=== PATIENT | female | born 1985 | race Caucasian/White ===

== ENCOUNTER 2024-04-07 20:08 | Inpatient (IN) | payer OTHER, SELFPAY ==
[2024-04-07] MEDS ORDERED: Ketorolac Tromethamine 30 MG (1 mL) VIAL ONE (20:22)
[2024-04-07] MEDS ORDERED: fentaNYL 50 mcg/mL 1 mL Vial ONE (20:22)
[2024-04-07 20:45] LABS: #Basophils Less than 0.03 10x3/uL (0.0-0.2); #Eosinophils Less than 0.03 10x3/uL (0.0-0.7); %Basophils 0.1 % (0.0-1.0); %Eosinophils 0.1 % (0.0-10.0); %Lymphocytes 2.2 % (21.0-51.0); %Monocytes 1.8 % (0.0-10.0); %Neutrophils 95.3 % (42.0-75.0); Hematocrit 32.5 % (36.0-47.0); Hemoglobin 11.1 g/dL (12.0-16.0); Mean Corpuscular HGB CONC 34.2 g/dL (32.0-36.0); Mean Corpuscular Hemoglobin 30.5 pg (27.0-31.0); Mean Corpuscular Volume 89.3 fL (78.0-98.0); Mean Platelet Volume 11.4 fL (7.4-10.4); Platelet Count 246 10x3/uL (130-400); RBC Distribution Width 13.1 % (11.5-14.5); Red Blood Cell (RBC) Count 3.64 mill/uL (4.20-5.40)
[2024-04-07 20:58] LABS: BHCG - Serum Negative (NEGATIVE); Pregs Control Background? CLEAR/WHITE (CLR/WHITE); Pregs Control Bar Appear? YES (CONTROL BAR)
[2024-04-07 21:06] LABS: ALT (SGPT) 11 U/L (8-55); AST (SGOT) 20 U/L (5-34); Albumin 3.3 g/dL (3.5-5.0); Alkaline Phosphatase 74 U/L (40-110); Anion Gap 14 mmol/L (10-20); BUN (Urea Nitrogen) 9 mg/dL (7.0-18.7); Calc. Creatinine Clearance 0 mL/min (70-130); Calcium 8.5 mg/dL (7.8-10.44); Carbon Dioxide 18 mmol/L (22-29); Chloride 108 mmol/L (98-107); Estimated GFR 84; Globulin 2.7 g/dL (2.4-3.5); Glucose 94 mg/dL (70-105); Potassium 3.6 mmol/L (3.5-5.1); Sodium 136 mmol/L (136-145)
[2024-04-07] MEDS ORDERED: HYDROmorphone 0.5 MG/0.5 ML SYRINGE ONE (21:23)
[2024-04-07] MEDS ORDERED: cefTRIAXone (ROCEPHIN) 1 GM VIAL ONE (23:09)
[2024-04-07] MEDS ORDERED: Sodium Chloride 0.9% 100 ML ONE (23:09)
[2024-04-08 00:24] LABS: Bilirubin Negative (Negative); Blood, Urine 1+ (Negative); CAUTI Indications for Culture Pelvic or flank pain; Clarity Extra Turbid (Clear); Glucose, Urine (Dipstick) Normal (Negative); Ketone, Urine Trace mg/dL (Negative); Leukocyte 500 Leu/uL (Negative); Nitrite 2+ (Negative); Protein, Urine (Dipstick) 70 mg/dL (Neg-Trace); Squamous Epithelial Greater than 50 HPF (0-3); Transitional Epithelial 0-3 HPF (None Seen); Urobilinogen Normal mg/dL (Less than 2); WBC/HPF Greater than 50 HPF (0-3); pH, Urine 6.5 (5.0-9.0)
[2024-04-08 00:25] LABS: Bacteria/HPF 1+ HPF (None Seen)
[2024-04-08 00:26] LABS: Urine Culture Reflex Yes Yes
[2024-04-08 00:37] LABS: Specific Gravity, Urine Greater than 1.060 (1.002-1.036)
[2024-04-08] MEDS ORDERED: Ketorolac Tromethamine 30 MG (1 mL) VIAL ONE (01:09)
[2024-04-08] MEDS ORDERED: Acetaminophen 650 MG Suppository PR PRN (01:33)
[2024-04-08 02:17] VITALS: BMI 21.1
[2024-04-08] MEDS ORDERED: Morphine 4 MG/ML VIAL ONE (02:21)
[2024-04-08] MEDS ORDERED: Sodium Chloride 0.9% 100 ML ONE (02:21)
[2024-04-08] MEDS ORDERED: cefTRIAXone (ROCEPHIN) 1 GM VIAL ONE (02:21)
[2024-04-08] MEDS: Morphine 4 MG/ML VIAL SLOW IVP SCH (02:37)
[2024-04-08] MEDS: Sodium Chloride 0.9% 1,000 ML IV SCH (02:38)
[2024-04-08] MEDS: cefTRIAXone\\ROCEPHIN 1 GM in Sodium Chloride 0.9% 100 ML IVPB SCH (02:38)
[2024-04-08] MEDS ORDERED: traZODone HCl 50 MG TAB ONE (03:54)
[2024-04-08] MEDS: traZODone HCl 50 MG TAB PO SCH (04:10)
[2024-04-08 05:22] LABS: ALT (SGPT) 11 U/L (8-55); AST (SGOT) 21 U/L (5-34); Albumin 2.9 g/dL (3.5-5.0); Alkaline Phosphatase 68 U/L (40-110); Anion Gap 12 mmol/L (10-20); BUN (Urea Nitrogen) 8 mg/dL (7.0-18.7); Bilirubin, Total 0.6 mg/dL (0.2-1.2); Calc. Creatinine Clearance 77 mL/min (70-130); Calcium 7.6 mg/dL (7.8-10.44); Carbon Dioxide 15 mmol/L (22-29); Chloride 110 mmol/L (98-107); Estimated GFR 89; Globulin 2.5 g/dL (2.4-3.5); Glucose 98 mg/dL (70-105); Potassium 3.3 mmol/L (3.5-5.1); Protein, Total 5.4 g/dL (6.0-8.3); Sodium 134 mmol/L (136-145)
[2024-04-08 05:48] LABS: Hemoglobin 10.2 g/dL (12.0-16.0); Mean Corpuscular HGB CONC 31.9 g/dL (32.0-36.0); Mean Corpuscular Hemoglobin 30.7 pg (27.0-31.0); Mean Corpuscular Volume 96.4 fL (78.0-98.0); Mean Platelet Volume 11.6 fL (7.4-10.4); Platelet Count 207 10x3/uL (130-400); RBC Distribution Width 13.2 % (11.5-14.5); Red Blood Cell (RBC) Count 3.32 mill/uL (4.20-5.40)
[2024-04-08 07:14] LABS: Band 19 % (5-11); Burr Cells SLIGHT = 2-5 cells HPF (0-1); Lymphocytes 4 % (21-51); Monocytes 1 % (0-10); Neutrophil 77 % (42-75); Platelet Adequacy Comment Platelets Normal; Poikilocytosis SLIGHT = 6-15 cells HPF (0-5)
[2024-04-08] MEDS ORDERED: Morphine 2 MG/ML VIAL ONE (07:43)
[2024-04-08] MEDS: Morphine 2 MG/ML VIAL SLOW IVP PRN (08:00)
[2024-04-08] MEDS: Enoxaparin 40 MG (0.4 mL) SYRINGE SC SCH (09:00)
[2024-04-08] MEDS: Potassium Chloride 20 MEQ TAB PO SCH (10:30)
[2024-04-08] MEDS ORDERED: Enoxaparin 40 MG (0.4 mL) SYRINGE ONE (10:35)
[2024-04-08] MEDS ORDERED: Potassium Chloride 20 MEQ TAB ONE (10:49)
[2024-04-08] MEDS ORDERED: cefTRIAXone\\ROCEPHIN 1 GM in Sodium Chloride 0.9% 100 ML IVPB SCH (21:00)
[2024-04-08] MEDS: cefTRIAXone\\ROCEPHIN 2 GM in Sodium Chloride 0.9% 100 ML IVPB SCH (21:00)
[2024-04-08] MEDS: Acetaminophen 325 MG TAB PO PRN (21:13)
[2024-04-09] MEDS: FLU (Fluarix Triv) TS24-25(6MOS UP)/PF 45 MCG/0.5 ML Syringe IM ONE (08:21)
[2024-04-09 10:28] LABS: #Basophils Less than 0.03 10x3/uL (0.0-0.2); %Basophils 0.2 % (0.0-1.0); %Eosinophils 0.9 % (0.0-10.0); %Monocytes 5.3 % (0.0-10.0); %Neutrophils 88.9 % (42.0-75.0); Hematocrit 30.7 % (36.0-47.0); Hemoglobin 10.1 g/dL (12.0-16.0); Mean Corpuscular HGB CONC 32.9 g/dL (32.0-36.0); Mean Corpuscular Hemoglobin 30.2 pg (27.0-31.0); Mean Corpuscular Volume 91.9 fL (78.0-98.0); Mean Platelet Volume 11.8 fL (7.4-10.4); Platelet Count 205 10x3/uL (130-400); RBC Distribution Width 13.4 % (11.5-14.5); Red Blood Cell (RBC) Count 3.34 mill/uL (4.20-5.40)
[2024-04-09 10:55] LABS: ALT (SGPT) 21 U/L (8-55); AST (SGOT) 34 U/L (5-34); Albumin 2.4 g/dL (3.5-5.0); Alkaline Phosphatase 106 U/L (40-110); Anion Gap 6 mmol/L (10-20); BUN (Urea Nitrogen) Less than 4 mg/dL (7.0-18.7); Bilirubin, Total 0.3 mg/dL (0.2-1.2); Calc. Creatinine Clearance 88 mL/min (70-130); Calcium 8.2 mg/dL (7.8-10.44); Carbon Dioxide 19 mmol/L (22-29); Chloride 114 mmol/L (98-107); Estimated GFR 103; Globulin 2.5 g/dL (2.4-3.5); Glucose 112 mg/dL (70-105); Potassium 3.4 mmol/L (3.5-5.1); Protein, Total 4.9 g/dL (6.0-8.3); Sodium 136 mmol/L (136-145)
[2024-04-09] MEDS: metroNIDAZOLE 500 MG in Premix 1 BAG IVPB SCH ×2 (14:46→20:59)
[2024-04-09 16:45] LABS: Bilirubin Negative (Negative); Blood, Urine Negative (Negative); Clarity Clear (Clear); Glucose, Urine (Dipstick) Normal (Negative); Ketone, Urine Negative (Negative); Leukocyte 250 Leu/uL (Negative); Nitrite Negative (Negative); Protein, Urine (Dipstick) Negative (Neg-Trace); RBC/HPF 0-3 HPF (0-3); Specific Gravity, Urine 1.003 (1.002-1.036); Urobilinogen Normal mg/dL (Less than 2)
[2024-04-09 16:48] LABS: Bacteria/HPF Rare-Few HPF (None Seen)
[2024-04-09] MEDS: Ondansetron PF 4 MG/2 ML Vial IVP PRN (16:59)
[2024-04-09] MEDS: Acetaminophen/Codeine 30-300mg Tablet PO PRN (18:18)
[2024-04-09] MEDS: Morphine 4 MG/ML VIAL SLOW IVP PRN (21:04)
[2024-04-09] MEDS: cefTRIAXone\\ROCEPHIN 2 GM in Sodium Chloride 0.9% 100 ML IVPB SCH (23:36)
[2024-04-10 05:46] LABS: ALT (SGPT) 28 U/L (8-55); AST (SGOT) 31 U/L (5-34); Albumin 2.4 g/dL (3.5-5.0); Alkaline Phosphatase 130 U/L (40-110); Anion Gap 8 mmol/L (10-20); BUN (Urea Nitrogen) Less than 4 mg/dL (7.0-18.7); Bilirubin, Total 0.2 mg/dL (0.2-1.2); Calc. Creatinine Clearance 90 mL/min (70-130); Calcium 8.1 mg/dL (7.8-10.44); Carbon Dioxide 20 mmol/L (22-29); Chloride 110 mmol/L (98-107); Estimated GFR 107; Globulin 2.9 g/dL (2.4-3.5); Glucose 102 mg/dL (70-105); Potassium 3.3 mmol/L (3.5-5.1); Protein, Total 5.3 g/dL (6.0-8.3); Sodium 135 mmol/L (136-145)
[2024-04-10 05:48] LABS: Hematocrit 32.2 % (36.0-47.0); Hemoglobin 10.8 g/dL (12.0-16.0); Mean Corpuscular HGB CONC 33.5 g/dL (32.0-36.0); Mean Corpuscular Hemoglobin 29.8 pg (27.0-31.0); Mean Corpuscular Volume 88.7 fL (78.0-98.0); Mean Platelet Volume 12.6 fL (7.4-10.4); Platelet Count 229 10x3/uL (130-400); RBC Distribution Width 13.3 % (11.5-14.5); Red Blood Cell (RBC) Count 3.63 mill/uL (4.20-5.40)
[2024-04-10 06:21] LABS: Band 11 % (5-11); Burr Cells SLIGHT = 2-5 cells HPF (0-1); Lymphocytes 1 % (21-51); Metamyelocyte 1 % (0-0); Microcytosis SLIGHT = 6-15 cells HPF (0-5); Monocytes 3 % (0-10); Neutrophil 84 % (42-75); Platelet Adequacy Comment Platelets Normal; Poikilocytosis SLIGHT = 6-15 cells HPF (0-5); Vacuoles SLIGHT
[2024-04-10] MEDS: Potassium Chloride 20 MEQ TAB PO SCH (08:54)
[2024-04-11] MEDS: Potassium Chloride 20 MEQ TAB PO SCH (11:15)
[2024-04-11 11:42] LABS: Hematocrit 33.7 % (36.0-47.0); Hemoglobin 11.1 g/dL (12.0-16.0); Mean Corpuscular HGB CONC 32.9 g/dL (32.0-36.0); Mean Corpuscular Hemoglobin 30.2 pg (27.0-31.0); Mean Corpuscular Volume 91.6 fL (78.0-98.0); Mean Platelet Volume 11.4 fL (7.4-10.4); Platelet Count 275 10x3/uL (130-400); RBC Distribution Width 13.4 % (11.5-14.5); Red Blood Cell (RBC) Count 3.68 mill/uL (4.20-5.40)
[2024-04-11 11:44] LABS: ALT (SGPT) 18 U/L (8-55); AST (SGOT) 15 U/L (5-34); Albumin 2.3 g/dL (3.5-5.0); Alkaline Phosphatase 114 U/L (40-110); Anion Gap 10 mmol/L (10-20); BUN (Urea Nitrogen) Less than 4 mg/dL (7.0-18.7); Bilirubin, Total 0.2 mg/dL (0.2-1.2); Calc. Creatinine Clearance 90 mL/min (70-130); Calcium 8.1 mg/dL (7.8-10.44); Carbon Dioxide 23 mmol/L (22-29); Chloride 109 mmol/L (98-107); Estimated GFR 107; Globulin 2.7 g/dL (2.4-3.5); Glucose 102 mg/dL (70-105); Potassium 3.5 mmol/L (3.5-5.1); Sodium 138 mmol/L (136-145)
[2024-04-11 12:26] LABS: Band 3 % (5-11); Burr Cells MODERATE= 6-15 cells HPF (0-1); Lymphocytes 16 % (21-51); Monocytes 19 % (0-10); Neutrophil 62 % (42-75); Platelet Adequacy Comment Platelets Normal; Polychromasia SLIGHT = 2-3 cells HPF (0-2)
[2024-04-11] MEDS ORDERED: Milk Of Magnesia 30 ML UDCUP PO PRN (13:39)
[2024-04-11] MEDS: Polyethylene Glycol 3350 17 GM Packet PO SCH (15:08)
[2024-04-11 16:03] LABS: Acetaminophen Less than 10 mcg/mL (Less than 10); Alcohol Less than 10.0 mg/dL (Less than 10); Salicylate Less than 8.0 mg/dL (Less than 8.0)
[2024-04-11] MEDS: Sodium Chloride 0.9% 1,000 ML IV SCH (17:58)
[2024-04-11] MEDS: Morphine 2 MG/ML VIAL SLOW IVP PRN (18:06)
[2024-04-11 18:30] LABS: Amphetamine Not Detected (NotDetected); Barbiturates Screen Not Detected (NotDetected); Benzodiazepine Screen Not Detected (NotDetected); Cocaine Metabolite Screen Not Detected (NotDetected); Methadone Not Detected (NotDetected); Methamphetamine Not Detected (NotDetected); Opiate Screen Detected (NotDetected); Oxycodone Screen Not Detected (NotDetected); Phencyclidine (PCP) Not Detected (NotDetected); THC/Cannabinoid Screen Not Detected (NotDetected); Tricyclic Screen Not Detected (NotDetected)
[2024-04-11] MEDS: Senokot S 8.6-50 MG TAB PO SCH (22:06)
[2024-04-11] MEDS ORDERED: Ipratropium/Albuterol 3 ML NEB NEB PRN (22:52)
[2024-04-11] MEDS: Ipratropium/Albuterol 3 ML NEB ONE (22:59)
[2024-04-11] MEDS: GUAIFENESIN SF SOLN 200 MG/10 ML UDCUP PO PRN (23:03)
[2024-04-12 04:44] LABS: #Basophils 0.03 10x3/uL (0.0-0.2); %Basophils 0.3 % (0.0-1.0); %Lymphocytes 13.3 % (21.0-51.0); %Monocytes 17.7 % (0.0-10.0); Hematocrit 31.3 % (36.0-47.0); Hemoglobin 10.6 g/dL (12.0-16.0); Mean Corpuscular HGB CONC 33.9 g/dL (32.0-36.0); Mean Corpuscular Hemoglobin 30.2 pg (27.0-31.0); Mean Corpuscular Volume 89.2 fL (78.0-98.0); Mean Platelet Volume 11.7 fL (7.4-10.4); Platelet Count 290 10x3/uL (130-400); RBC Distribution Width 13.4 % (11.5-14.5); Red Blood Cell (RBC) Count 3.51 mill/uL (4.20-5.40)
[2024-04-12 05:01] LABS: ALT (SGPT) 22 U/L (8-55); AST (SGOT) 34 U/L (5-34); Albumin 2.4 g/dL (3.5-5.0); Alkaline Phosphatase 120 U/L (40-110); Anion Gap 11 mmol/L (10-20); BUN (Urea Nitrogen) 4 mg/dL (7.0-18.7); Bilirubin, Total 0.2 mg/dL (0.2-1.2); Calc. Creatinine Clearance 97 mL/min (70-130); Calcium 8.3 mg/dL (7.8-10.44); Carbon Dioxide 22 mmol/L (22-29); Chloride 109 mmol/L (98-107); Estimated GFR 113; Globulin 2.9 g/dL (2.4-3.5); Glucose 94 mg/dL (70-105); Lipase 44 U/L (8-78); Potassium 3.6 mmol/L (3.5-5.1); Protein, Total 5.3 g/dL (6.0-8.3); Sodium 138 mmol/L (136-145)
[2024-04-12 05:04] LABS: Acetaminophen Less than 10 mcg/mL (Less than 10); Alcohol Less than 10.0 mg/dL (Less than 10); Salicylate Less than 8.0 mg/dL (Less than 8.0)
[2024-04-12 05:06] LABS: Troponin I Less than 0.010 ng/mL (< 0.028)
[2024-04-12] MEDS ORDERED: Benzonatate 100 MG CAP PO PRN (09:45)
[2024-04-12] MEDS: Promethazine HCl 12.5 MG in Sodium Chloride 0.9% 50 ML IVPB SCH (11:35)
[2024-04-12] MEDS: Sodium Chloride 0.9% 1,000 ML IV SCH (11:36)
[2024-04-12] MEDS: Polyethylene Glycol 3350 17 GM Packet PO SCH (11:42)
[2024-04-12] MEDS: guaiFENesin ER 600 MG TAB PO SCH (11:42)
[2024-04-12] MEDS: LevoFLOXacin 750 mg/D5W 750 MG in Premix 1 BAG IVPB SCH (11:43)
[2024-04-12] MEDS: Ipratropium/Albuterol 3 ML NEB NEB SCH (12:07)
[2024-04-12] MEDS: Promethazine HCl 12.5 MG in Sodium Chloride 0.9% 50 ML IVPB PRN (16:45)
[2024-04-13 04:45] LABS: #Basophils 0.03 10x3/uL (0.0-0.2); %Basophils 0.4 % (0.0-1.0); %Eosinophils 3.8 % (0.0-10.0); %Lymphocytes 19.7 % (21.0-51.0); %Neutrophils 58.1 % (42.0-75.0); Hematocrit 32.9 % (36.0-47.0); Hemoglobin 10.8 g/dL (12.0-16.0); Mean Corpuscular HGB CONC 32.8 g/dL (32.0-36.0); Mean Corpuscular Hemoglobin 29.7 pg (27.0-31.0); Mean Corpuscular Volume 90.4 fL (78.0-98.0); Mean Platelet Volume 11.2 fL (7.4-10.4); Platelet Count 424 10x3/uL (130-400); RBC Distribution Width 13.3 % (11.5-14.5); Red Blood Cell (RBC) Count 3.64 mill/uL (4.20-5.40)
[2024-04-13 04:57] LABS: ALT (SGPT) 29 U/L (8-55); AST (SGOT) 45 U/L (5-34); Albumin 2.3 g/dL (3.5-5.0); Alkaline Phosphatase 105 U/L (40-110); Anion Gap 9 mmol/L (10-20); BUN (Urea Nitrogen) 4 mg/dL (7.0-18.7); Bilirubin, Total 0.2 mg/dL (0.2-1.2); Calc. Creatinine Clearance 95 mL/min (70-130); Calcium 8.3 mg/dL (7.8-10.44); Carbon Dioxide 22 mmol/L (22-29); Chloride 109 mmol/L (98-107); Estimated GFR 112; Globulin 2.9 g/dL (2.4-3.5); Glucose 143 mg/dL (70-105); Magnesium 2.1 mg/dL (1.6-2.6); Potassium 3.4 mmol/L (3.5-5.1); Protein, Total 5.2 g/dL (6.0-8.3); Sodium 137 mmol/L (136-145)
[2024-04-13 05:18] LABS: Free T4 (Free Thyroxine) 0.92 ng/dL (0.70-1.48)
[2024-04-13 08:30] VITALS: BP 116/76; TEMP 98.5
[2024-04-13] MEDS: Potassium Chloride 20 MEQ TAB PO SCH (09:00)
== END 2024-04-13 13:10 | disposition home or self-care (01) | DRG 871 ==
LOC: ERS 20:08 → ERHOLD 04-08 01:12 → 2SW 04-08 01:17 → T4-A 04-08 18:21
PROVIDERS: ADMIT Family Medicine; ATTEND Family Medicine
DX: A41.9 Sepsis, unspecified organism (principal); G93.41 Metabolic encephalopathy; J18.9 Pneumonia, unspecified organism; N10 Acute pyelonephritis; I95.9 Hypotension, unspecified; N83.209 Unspecified ovarian cyst, unspecified side; Z98.51 Tubal ligation status; Z98.890 Other specified postprocedural states; F17.290 Nicotine dependence, other tobacco product, uncomplicated; N83.202 Unspecified ovarian cyst, left side; N83.201 Unspecified ovarian cyst, right side
CPT/HCPCS: 36415; 71045; 74177; 74181; 76376; 76705; 76856; 80053; 80306; 80307; 81001; 81003; 81015; 83605; 83690; 83735; 84145; 84439; 84443; 84481; 84484; 84703; 85025; 86141; 87040; 87077; 87086; 87186; 93005; 93010; 94640; 96361; 96365; 96375; 96376; J0696; J1170; J1650; J1885; J1956; J2272; J2405; J2550; J3010; J7030; J7620

== ENCOUNTER 2025-02-27 21:04 | Inpatient (IN) | payer OTHER ==
[~2025-02-27 21:04] MED LIST: Iopamidol-370 76% 500 ML MDV (1 ML CHARGE) ONE
[2025-02-27] MEDS ORDERED: Ondansetron PF 4 MG/2 ML Vial ONE (21:18)
[2025-02-27 21:47] LABS: #Basophils 0.04 10x3/uL (0.0-0.2); #Eosinophils 0.15 10x3/uL (0.0-0.7); #Monocytes 0.86 10x3/uL (0.11-0.59); #Neutrophils 8.34 10x3/uL (1.40-6.50); %Basophils 0.4 % (0.0-1.0); %Eosinophils 1.5 % (0.0-10.0); %Lymphocytes 7.0 % (21.0-51.0); %Monocytes 8.5 % (0.0-10.0); %Neutrophils 82.3 % (42.0-75.0); Hematocrit 33.0 % (36.0-47.0); Hemoglobin 11.1 g/dL (12.0-16.0); Mean Corpuscular Hemoglobin 29.4 pg (27.0-31.0); Mean Corpuscular Volume 87.3 fL (78.0-98.0); Platelet Count 291 10x3/uL (130-400); Red Blood Cell (RBC) Count 3.78 mill/uL (4.20-5.40); White Blood Cell (WBC) Count 10.13 10x3/uL (4.8-10.8)
[2025-02-27 21:59] LABS: Acetaminophen Less than 10 mcg/mL (Less than 10); Salicylate Less than 8.0 mg/dL (Less than 8.0)
[2025-02-27 22:00] LABS: ALT (SGPT) 20 U/L (Less than 34); AST (SGOT) 33 U/L (11-34); Albumin 4.6 g/dL (3.1-4.5); Alkaline Phosphatase 74 U/L (40-110); Anion Gap 14 mmol/L (10-20); BUN (Urea Nitrogen) 13 mg/dL (7.0-18.7); Bilirubin, Total 0.7 mg/dL (0.3-1.2); Calc. Creatinine Clearance 0 mL/min (70-130); Calcium 9.2 mg/dL (7.8-10.44); Carbon Dioxide 21 mmol/L (22-29); Chloride 104 mmol/L (98-107); Globulin 2.6 g/dL (2.4-3.5); Glucose 88 mg/dL (70-105); Potassium 3.4 mmol/L (3.5-5.1); Sodium 136 mmol/L (136-145)
[2025-02-27 22:08] LABS: BHCG - Serum Negative (NEGATIVE); Pregs Control Background? CLEAR/WHITE (CLR/WHITE); Pregs Control Bar Appear? YES (CONTROL BAR)
[2025-02-27] MEDS ORDERED: Aspirin Chewable 81 MG TAB ONE (23:02)
[2025-02-27] MEDS ORDERED: Acetaminophen 325 MG TAB PO PRN (23:53)
[2025-02-28 01:14] VITALS: BMI 22.3
[2025-02-28] MEDS: Melatonin 3 MG TAB PO SCH (01:44)
[2025-02-28] MEDS: Ondansetron PF 4 MG/2 ML Vial IVP PRN (01:51)
[2025-02-28] MEDS: Potassium Bicarbonate/Cit Ac 20 MEQ TAB PO SCH (01:51)
[2025-02-28 04:38] LABS: #Basophils Less than 0.03 10x3/uL (0.0-0.2); #Eosinophils 0.17 10x3/uL (0.0-0.7); #Monocytes 0.72 10x3/uL (0.11-0.59); #Neutrophils 4.11 10x3/uL (1.40-6.50); %Basophils 0.4 % (0.0-1.0); %Eosinophils 3.0 % (0.0-10.0); %Lymphocytes 11.4 % (21.0-51.0); %Monocytes 12.7 % (0.0-10.0); %Neutrophils 72.3 % (42.0-75.0); Hematocrit 31.3 % (36.0-47.0); Hemoglobin 10.4 g/dL (12.0-16.0); Mean Corpuscular Hemoglobin 29.2 pg (27.0-31.0); Mean Corpuscular Volume 87.9 fL (78.0-98.0); Platelet Count 250 10x3/uL (130-400); Red Blood Cell (RBC) Count 3.56 mill/uL (4.20-5.40); White Blood Cell (WBC) Count 5.68 10x3/uL (4.8-10.8)
[2025-02-28 05:05] LABS: Anion Gap 11 mmol/L (10-20); BUN (Urea Nitrogen) 9 mg/dL (7.0-18.7); Calc. Creatinine Clearance 108 mL/min (70-130); Calcium 8.2 mg/dL (7.8-10.44); Carbon Dioxide 20 mmol/L (22-29); Cardiac Risk 2.3 (Less than 4.5); Chloride 106 mmol/L (98-107); Cholesterol 164 mg/dl (< 200 Desired); Glucose 98 mg/dL (70-105); HDL Cholesterol 70 mg/dL (>60 Neg Risk); LDL Cholesterol, Calculated 81 mg/dL; Potassium 3.7 mmol/L (3.5-5.1); Sodium 133 mmol/L (136-145); Triglycerides 66 mg/dL (Less than 150)
[2025-02-28 05:42] LABS: Bacteria/HPF None Seen HPF (None Seen); CAUTI Indications for Culture Alt mental st,lethar; Glucose, Urine (Dipstick) Normal (Negative); Leukocyte Negative Leu/uL (Negative); Protein, Urine (Dipstick) Negative (Neg-Trace); RBC/HPF 0-3 HPF (0-3); Specific Gravity, Urine 1.037 (1.002-1.036); WBC/HPF 0-3 HPF (0-3)
[2025-02-28 05:45] LABS: Urine Culture Reflex No No
[2025-02-28 05:50] LABS: Cocaine Metabolite Screen Negative (Negative); THC/Cannabinoid Screen Negative (Negative); Tricyclic Screen Negative (Negative)
[2025-02-28 15:55] VITALS: BP 117/72; TEMP 98.4
== END 2025-02-28 17:00 | disposition home or self-care (01) | DRG 92 ==
LOC: ERS 21:04 → 2SE 23:45 → OBSVTOIN 02-28 13:38
PROVIDERS: ADMIT Internal Medicine; ATTEND Internal Medicine
DX: R47.1 Dysarthria and anarthria (principal); G93.40 Encephalopathy, unspecified; F41.0 Panic disorder [episodic paroxysmal anxiety]; F17.210 Nicotine dependence, cigarettes, uncomplicated; R55 Syncope and collapse; D64.9 Anemia, unspecified; H53.8 Other visual disturbances; E87.6 Hypokalemia; F17.290 Nicotine dependence, other tobacco product, uncomplicated; Z98.51 Tubal ligation status; Z98.890 Other specified postprocedural states; Z98.1 Arthrodesis status; R47.81 Slurred speech; R29.898 Other symptoms and signs involving the musculoskeletal system; W18.30XA Fall on same level, unspecified, initial encounter; Z53.29 Procedure and treatment not carried out because of patient's decision for other reasons
CPT/HCPCS: 36415; 36416; 70450; 70496; 70498; 70551; 72141; 80048; 80053; 80061; 80306; 80307; 81001; 83605; 84443; 84484; 84703; 85025; 93005; 93306; 96376; G0378; J2060; J2405; Q9967